=== PATIENT | female | born 1935 | race Caucasian/White ===

== ENCOUNTER → 2020-11-12 | Outpatient (CLI) | payer OTHER ==
[~2020-11-12] MED LIST: ACTOS15 MG PO; ALEVE220 M1 PO; AMARYL4 MG PO; CARBIDOPA-LEVO1 EAC1 PO; FOLIC ACID 40400 MC1 PO; GLUCOPHAGE500 MG PO; GLUCOSAMINE HC500 MG PO; MICARDIS40 MG PO; NEXIUM 40 MG CA40 M1 PO; [UNRECOGNIZED DRUG - CODE] PO
== END ==
LOC: M.RAD 17:03
PROVIDERS: ATTEND Registered Nurse Diabetes Educator
DX: M16.0 Bilateral primary osteoarthritis of hip (principal); M51.37 Other intervertebral disc degeneration, lumbosacral region; M54.42 Lumbago with sciatica, left side; M25.552 Pain in left hip